=== PATIENT | female | born 1975 | race Caucasian/White ===

== ENCOUNTER 2016-10-28 21:33 | Emergency (ER) | payer OTHER ==
[~2016-10-28] VITALS: Ht 167.6 cm; Wt 97.5 kg
--- NOTE | 2016-10-28 22:23 | ED INFLUENZA/URI COMPLAINT ---
History of Present Illness General Chief Complaint: General Adult Stated Complaint: PT HAS A FEVER 2DYS,ACHES,CHILLS,FLU SYMPTOM Source: patient, family Exam Limitations: no limitations Vital Signs & Intake/Output Vital Signs & Intake/Output Vital Signs Date Time Temp Pulse Resp B/P Pulse O2 O2 Flow FiO2 Ox Delivery Rate 10/287 101.0 90 18 112/62 97 Room Air 10/28 2236 Room Air 10/28 2147 100.5 90 18 92/65 97 Room Air Allergies Coded Allergies: No Known Allergies (10/28/16) Reconcile Medications Benzonatate 200 MG CAPSULE 1 CAP PO TID PRN cough Ibuprofen 800 MG TABLET 1 TAB PO Q8 PRN PAIN/fevers Oseltamivir Phosphate (Tamiflu) 75 MG CAPSULE 1 CAP PO BID influenza Robitussin AC (Guaifenesin-Codeine Syrup) 200 MG-20 MG/10 ML LIQUID 10 ML PO Q6H PRN COUGH may cause drowsiness Triage Note: PT TO TRIAGE WITH C/O COUGH, CONGESTION, SORE THROAT, FEVER, BODY ACHES x2DAYS. TEMP 100.5 IN TRIAGE. FLU SWAB AND STREP SWABS OBTAINED IN TRIAGE AND SENT TO LAB. Triage Nurses Notes Reviewed? yes : No Patient currently breastfeeds: No HPI: Patient is a 41-year-old female presents complaining of cough, fevers, chills, body aches. Symptoms 2 days. Fevers between 101 and 102F. Patient has been taking DayQuil and NyQuil with mild intermittent improvement then symptoms return. Cough is nonproductive. Patient's daughter was sick within the past 1- 2 weeks but symptoms were not as severe. Patient did not receive an influenza vaccination this influenza season. Patient is tolerating food and liquids appropriately. Denies sputum production or dyspnea. (ELISEO LORENZO) Past History Travel History Traveled to [place] past 21 day No Medical History Any Pertinent Medical History? none Surgical History Surgical History: non-contributory Psychosocial History What is your primary language Tongan Tobacco Use: Never used Family History Hx Contributory? No (ELISEO LORENZO) Review of Systems Review of Systems Constitutional: Reports: chills, fever. EENTM: Reports: nasal congestion, throat pain. Respiratory: Reports: cough. Denies: short of breath, sputum production. Cardiovascular: Denies: chest pain. GI: Denies: abdominal pain, vomiting. Musculoskeletal: Reports: muscle pain. Skin: Reports: no symptoms. Neurological/Psychological: Reports: no symptoms. Hematologic/Endocrine: Reports: no symptoms. Immunologic/Allergic: Reports: no symptoms. (ELISEO LORENZO) Physical Exam Physical Exam General Appearance: well developed/nourished, alert, awake Head: atraumatic, normal appearance Eyes: Bilateral: normal appearance, PERRL, EOMI. Ears, Nose, Throat: normal ENT inspection, moist mucous membrane, hearing grossly normal, pharynx normal Neck: normal inspection, supple, full range of motion Respiratory: normal breath sounds, chest non-tender, no respiratory distress, lungs clear Cardiovascular: regular rate/rhythm Back: normal inspection, normal range of motion Extremities: normal inspection, normal capillary refill, normal range of motion, no edema Neurologic/Psych: no motor/sensory deficits, awake, alert, oriented x 3, normal gait, normal mood/affect Skin: intact, normal color, warm/dry Lymphatic: no anterior cervical karolina Core Measures Severe Sepsis Present: No Septic Shock Present: No (ELISEO LORENZO) Progress Differential Diagnosis: influenza, meningitis, pneumonia, pharyngitis, sinusitis Plan of Care: Orders Procedure Date/time Status THROAT CULTURE W/QUICK STREP 10/29 2155 Active THROAT CULTURE W/QUICK STREP 10/28 2150 Active RAPID VIRAL INFLUENZA A 10/28 2138 Complete Microbiology 10/29 2155 NASOPHARYN: Influenza Virus A & B Rapid Smear - COMP INFLUENZA TYPE A Patient nontoxic-appearing, tolerating oral intake. No acute respiratory distress. Results of influenza swab discussed with patient. Patient appears stable for discharge. Since symptoms or within the 48-hour window Will start on Tamiflu. (ELISEO LORENZO) Initial ED EKG: none (ELISEO LORENZO) Departure Departure Time of Disposition: 2235 Disposition: HOME OR SELF CARE Condition: Stable Clinical Impression Primary Impression: Influenza A Referrals: PATIENT HAS NO PRIMARY CARE DR (PCP/Family) SEBLE ESTRADA,MICHELE Additional Instructions: Drink plenty of fluids and rest. Follow-up with the primary doctor listed in your discharge paperwork to establish a doctor in for further evaluation. Return to the emergency department if unable to stay hydrated, difficulty breathing, worsening of symptoms. Departure Forms: Customer Survey General Discharge Information Prescriptions: Current Visit Scripts Robitussin AC (Guaifenesin-Codeine Syrup) 10 ML PO Q6H PRN COUGH #150 ML may cause drowsiness Ibuprofen 1 TAB PO Q8 PRN PAIN/fevers #20 TAB Oseltamivir Phosphate (Tamiflu) 1 CAP PO BID #10 CAP Benzonatate 1 CAP PO TID PRN cough #30 CAP (ELISEO LORENZO) PA/ZIGZAG TOPSTITCHER Co-Sign Statement Statement: ED Attending supervision documentation- [] I saw and evaluated the patient. I have also reviewed all the pertinent lab results and diagnostic results. I agree with the findings and the plan of care as documented in the PA's/ZIGZAG TOPSTITCHER's documentation. x I have reviewed the ED Record and agree with the PA's/ZIGZAG TOPSTITCHER's documentation. [] Additions or exceptions (if any) to the PAs/ZIGZAG TOPSTITCHER's note and plan are summarized below: [] (ELICEO ESTRADA,WALDEMAR)
[2016-10-28] MEDS ORDERED: GUAIFENESIN-COD10 ML PO (22:37)
[2016-10-28] MEDS ORDERED: IBUPROFEN800 M1 PO (22:37)
[2016-10-28] MEDS ORDERED: TAMIFLU75 M1 PO (22:37)
[2016-10-28] MEDS ORDERED: BENZONATATE200 M1 PO (22:37)
[2016-10-28 22:47] VITALS: BP 112/62
== END 2016-10-28 22:48 ==
LOC: ERH 21:33
DX: J10.1 Influenza due to other identified influenza virus with other respiratory manifestations (principal)
CPT/HCPCS: 87804; 87804-59